=== PATIENT | female | born 1985 | race Caucasian/White ===

== ENCOUNTER 2018-05-01 01:13 | Emergency (ER) | payer SELFPAY ==
[~2018-05-01] VITALS: Ht 170.2 cm; Wt 48.5 kg
[2018-05-01 01:20] VITALS: BP 139/69
[2018-05-01] MEDS ORDERED: IBUPROFEN600 MG ORAL (01:46)
--- NOTE | 2018-05-01 01:47 | Emergency Room Report ---
History of Present Illness General Chief Complaint: Laceration Source: Patient Present Illness HPI Is a 32-year-old female with history of anxiety and chronic pain. She presents with chief complaint of head injury. She says she bumped her head on a cabinet and then passed out. Complain of severe pain atop her head. Pain is 10 out of 10. No nausea no vomiting but no fever or chills. No neurological deficit. Loss of consciousness was brief. Denies any other complaint. Allergies: Coded Allergies: NUT - UNSPECIFIED (Verified Allergy, Unknown, 05/01/18) SULFA (SULFONAMIDE ANTIBIOTICS) (Verified Allergy, Unknown, 05/01/18) Patient History Past Medical History: see triage record, old chart reviewed, psych hx Past Surgical History: other Pertinent Family History: none Social History: Denies: smoking Last Menstrual Period: 04/30/2018 Now: No : 1 Para: 0 Immunizations: other Reviewed Nursing Documentation: PMH: Agreed; PSxH: Agreed Nursing Documentation-PMH Past Medical History: No History, Except For Hx Hypertension: Yes History Of Psychiatric Problem: Yes - bipolar Review of Systems Eye: Denies: eye pain, blurred vision ENT: Denies: ear pain, nose congestion, throat swelling Respiratory: Denies: cough, shortness of breath Cardiovascular: Denies: chest pain, palpitations Gastrointestinal: Denies: abdominal pain, diarrhea, nausea, vomiting Musculoskeletal: Denies: back pain, joint pain Skin: Denies: rash Neurological: Denies: headache, numbness Endocrine: Denies: increased thirst, increased urine Hematologic/Lymphatic: Denies: easy bruising All Other Systems: negative except mentioned in HPI Physical Exam Vital Signs Date Time Temp Pulse Resp B/P (MAP) Pulse Ox O2 Delivery O2 Flow Rate FiO2 05/01/18 01:17 98.3 81 16 164/88 100 Room Air 98.2 vitals with high blood pressure. Repeat blood pressure normal Sp02 EP Interpretation: reviewed, normal General Appearance: well appearing, no apparent distress, alert Head: normocephalic, other - abrasion to vertex of scalp. Eyes: bilateral eye PERRL, bilateral eye EOMI ENT: hearing grossly normal, normal pharynx Neck: full range of motion, supple, no meningismus Respiratory: chest non-tender, lungs clear, normal breath sounds Cardiovascular #1: regular rate, rhythm, no murmur Gastrointestinal: normal bowel sounds, non tender, no mass, no organomegaly, no bruit, non-distended Musculoskeletal: back normal, gait/station normal, normal range of motion Psychiatric: mood/affect normal Skin: warm/dry Medical Decision Making Diagnostic Impression: Primary Impression: Head injury, acute Qualified Codes: S09.90XA - Unspecified injury of head, initial encounter Additional Impression: Scalp abrasion Qualified Codes: S00.01XA - Abrasion of scalp, initial encounter ER Course Patient presents with superficial injury to the scalp. No laceration to be sutured. No evidence of intracranial injury or skull fracture. We'll discharge home. Her injury is just recently get she claimed that she took a bunch of Tylenol and Motrin at home already. On the [employer] system, she is taking Concerta and Xanax. She also was taking Omro 10 mg #120 up until recently. She then went for months without any narcotics. She claimed that she could not get into see her pain specialist and went cold turkey. She refused CT scan. She is competent to make that decision. I am not comfortable giving her narcotic for superficial injury, especially with history of opioid dependence. CT/MRI/US Diagnostic Results CT/MRI/US Diagnostic Results : Imaging Test Ordered: cT head Impression patient refused CT scan Last Vital Signs Date Time Temp Pulse Resp B/P (MAP) Pulse Ox O2 Delivery O2 Flow Rate FiO2 05/01/18 01:20 98.2 69 22 139/69 100 Room Air 98.2 Status: unchanged Disposition: HOME, SELF-CARE Condition: Stable Scripts Ibuprofen* (MOTRIN*) 600 Mg Tablet 600 MG ORAL THREE TIMES A DAY, #30 TAB 0 Refills Prov: Naman Priest MD 05/01/18 Referrals: NOT CHOSEN IPA/,REFERRING (PCP) Additional Instructions: Follow-up with your doctor in 7 days. Return if symptom worsen. Naman Priest MD May 01, 2018 01:47
[2018-05-01 02:25] VITALS: BP 126/69
== END 2018-05-01 02:25 | disposition home or self-care (01) ==
LOC: EMR 01:30
DX: S06.9X1A Unspecified intracranial injury with loss of consciousness of 30 minutes or less, initial encounter (principal); S00.00XA Unspecified superficial injury of scalp, initial encounter; I10 Essential (primary) hypertension; F31.9 Bipolar disorder, unspecified; W22.8XXA Striking against or struck by other objects, initial encounter; Y93.9 Activity, unspecified; Z88.2 Allergy status to sulfonamides; Y92.9 Unspecified place or not applicable; Y99.9 Unspecified external cause status
CPT/HCPCS: 99284

== ENCOUNTER 2018-08-17 13:23 | Emergency (ER) | payer MEDICARE, OTHER ==
[~2018-08-17] VITALS: Ht 167.6 cm; Wt 54.4 kg
[2018-08-17 13:23] VITALS: BP 123/86
[~2018-08-17 13:23] MED LIST: IBUPROFEN600 MG ORAL
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
--- NOTE | 2018-08-17 13:33 | NUR ---
ED Nurse Note: abrasion noted on the left elbow. Addendum: 08/17/18 at 1350 by [email or web address] ED Nurse Note: abrasion noted on the left elbow and left knee. Bruise noted on the right knee.
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
[2018-08-17] MEDS ORDERED: Morphine Sulfate 2mg/ml Inj(IV/IM USE ONLY) IVP ONE (13:45)
[2018-08-17] MEDS ORDERED: Ketorolac 30mg Inj IV ONE (13:45)
--- NOTE | 2018-08-17 13:55 | NUR ---
ED Nurse Note: contacted Radiology for xray orders.
--- NOTE | 2018-08-17 13:56 | NUR ---
ED Nurse Note: [employer] at the bedside
[2018-08-17] MEDS ORDERED: ZOFRAN4 M3 ORAL (14:40)
[2018-08-17] MEDS ORDERED: ACETAMINOPHEN-1 EAC1 ORAL (14:40)
[2018-08-17] MEDS ORDERED: ROBAXIN-750750 MG PO (14:40)
--- NOTE | 2018-08-17 14:44 | Diagnostic Imaging Report ---
. Indication: Chest pain, trauma Technique: XRAY Chest 1v Comparison: None Findings: Heart size and mediastinal contours are within normal limits for AP technique. There is no focal airspace consolidation, pneumothorax or pleural effusion. Osseous structures demonstrate no acute abnormality. A left nipple ring is incidentally identified. Abdominal shield is partially visualized. Impression: No radiographic evidence of acute cardiopulmonary disease.
[2018-08-17] MEDS ORDERED: Morphine Sulfate 4mg/ml Inj (IV USE ONLY) IVP ONE (14:45)
[2018-08-17 14:51] VITALS: BP 130/98
--- NOTE | 2018-08-17 14:51 | Diagnostic Imaging Report ---
Indication: Trauma Technique: XRAY Elbow Min 3v L Comparison: None Findings: Bone mineralization within normal limits.. No definite/displaced acute fracture identified. A joint appears maintained. No joint effusion. 2 linear metallic densities project over the soft tissues of the forearm. These measure approximately 11 mm each in the shape of needles. These may be external to the patient or may represent retained foreign bodies. Correlate with physical exam recommended. Impression: * No definite/displaced acute fracture. No dislocation. No elbow joint effusion. * To approximately 11 mm linear metallic densities in the shape of the needles project over the soft tissues of the forearm. These may be external to the patient or may represent retained foreign bodies. Correlation physical exam recommended.
[2018-08-17 14:52] VITALS: BP 130/98
--- NOTE | 2018-08-17 14:57 | Diagnostic Imaging Report ---
Indication: Trauma Technique: XRAY Knee 3v LT Comparison: None Findings: Bone mineralization within normal limits. There is no evidence of acute fracture or dislocation. No radiopaque foreign body. No suprapatellar joint effusion. Impression: No acute fracture or dislocation.
--- NOTE | 2018-08-17 15:21 | NUR ---
ED Nurse Note: A/OX4. PT IS CLEARED BY DR. Roselia BLACKMON INSTRUCTION AND PRESCRIPTIONS GIVEN, PT VERBALIZED UNDERSTANDING. IV AND ID WRIST REMOVED. ALL BELONGINGS GIVEN TO PT. DENIES ANY PAIN AT THIS TIME. PT AMBULATED OUT OF ER WITH STEADY GAIT. PT STATES THAT SHE WILL BE GOING HOME VIA TAXI.
== END 2018-08-17 15:21 | disposition home or self-care (01) ==
LOC: EDBD 13:23 → EMR 15:10
DX: S50.02XA Contusion of left elbow, initial encounter (principal); S50.312A Abrasion of left elbow, initial encounter; S80.212A Abrasion, left knee, initial encounter; S80.211A Abrasion, right knee, initial encounter; M54.2 Cervicalgia; V43.52XA Car driver injured in collision with other type car in traffic accident, initial encounter; Y92.89 Other specified places as the place of occurrence of the external cause; Z88.2 Allergy status to sulfonamides; Z91.018 Allergy to other foods
CPT/HCPCS: 71045; 73080; 73562; 96374; 96375; 96376; 99284; J1885; J2270; J2405